=== PATIENT | female | born 1935 | race Caucasian/White ===

== ENCOUNTER 2016-10-11 15:53 | Outpatient (CLI) | payer MEDICARE ==
[2015-12-22 02:25] VITALS: BP 124/72
[2016-10-11 16:22] LABS: BASOPHILS % 0.4 (0.0-1.5); EOSINOPHILS % 3.4 % (0.0-6.8); MEAN CORPUSCULAR HEMOGLOBIN 28.9 pg (28.0-34.0); MONOCYTES # 0.2 # k/uL (0.0-0.9); NEUTROPHILS # 3.1 # k/uL (1.4-7.7)
[2016-10-11 21:51] LABS: IRON SERUM 32 ug/dL (37-145)
== END 2016-10-11 15:54 ==
LOC: LAB 15:53
PROVIDERS: ATTEND Family Medicine
DX: D64.9 Anemia, unspecified (principal); E56.8 Deficiency of other vitamins
CPT/HCPCS: 36415; 82746; 83540; 85025

== ENCOUNTER 2016-12-01 06:28 | Outpatient (CLI) | payer MEDICARE ==
[2015-12-22 02:25] VITALS: BP 124/72
[2016-12-01 07:17] LABS: BASOPHILS % 0.4 (0.0-1.5); LYMPHOCYTES # 1.1 # k/uL (0.6-4.0); MEAN CORPUSCULAR HEMOGLOBIN 29.1 pg (28.0-34.0); MONOCYTES # 0.2 # k/uL (0.0-0.9); MONOCYTES % 3.9 % (0.0-11.0); NEUTROPHILS # 3.6 # k/uL (1.4-7.7)
[2016-12-01 09:31] LABS: eGFR (African) > 60; eGFR (Non-African) > 60
== END 2016-12-01 06:29 ==
LOC: LAB 06:28
PROVIDERS: ATTEND Family Medicine
DX: I10 Essential (primary) hypertension (principal); M60.9 Myositis, unspecified
CPT/HCPCS: 36415; 80053; 85025; 85651

== ENCOUNTER 2017-01-28 14:17 | Outpatient (CLI) | payer MEDICARE ==
[2015-12-22 02:25] VITALS: BP 124/72
[2017-01-28 15:04] LABS: eGFR (African) > 60; eGFR (Non-African) > 60
[2017-01-28 15:17] LABS: BASOPHILS % 0.4 (0.0-1.5); MEAN CORPUSCULAR HEMOGLOBIN 26.6 pg (28.0-34.0); MEAN CORPUSCULAR VOLUME 87.9 fl (80.0-100.0); MONOCYTES % 6.2 % (0.0-11.0); NEUTROPHILS # 3.2 # k/uL (1.4-7.7)
== END 2017-01-28 14:18 ==
LOC: LAB 14:17
PROVIDERS: ATTEND Family Medicine
DX: R07.9 Chest pain, unspecified (principal)
CPT/HCPCS: 80053; 84484; 85025

== ENCOUNTER 2017-02-03 08:23 | Outpatient (CLI) | payer MEDICARE ==
[2015-12-22 02:25] VITALS: BP 124/72
== END 2017-02-03 08:24 ==
LOC: LAB 08:23
PROVIDERS: ATTEND Family Medicine
DX: D50.9 Iron deficiency anemia, unspecified (principal)
CPT/HCPCS: 36415; 83540

== ENCOUNTER 2017-02-07 12:40 | Outpatient (CLI) | payer MEDICARE ==
[2015-12-22 02:25] VITALS: BP 124/72
[2017-02-07] MEDS ORDERED: SALINE FLUSH 10 ML DISP.SYRIN IVF ONE (13:00)
[2017-02-07] MEDS ORDERED: IRON SUCROSE COMPLEX 200 MG in 0.9 % SODIUM CHLORIDE 50 ML IV SCH (13:00)
[2017-02-07] MEDS ORDERED: 0.9 % SODIUM CHLORIDE 50 ML IV.SOLN IV ONE (13:00)
[2017-02-07] MEDS ORDERED: IRON SUCROSE COMPLEX 20 MG/ML 10ML VIAL IV ONE (13:00)
== END 2017-02-07 12:42 ==
LOC: INF 12:40
PROVIDERS: ATTEND Family Medicine
DX: D50.9 Iron deficiency anemia, unspecified (principal)
CPT/HCPCS: 96365; J1756; S1016

== ENCOUNTER 2017-02-10 10:23 | Outpatient (CLI) | payer MEDICARE ==
[2015-12-22 02:25] VITALS: BP 124/72
[2017-02-10] MEDS ORDERED: 0.9 % SODIUM CHLORIDE 100 ML IV.SOLN IV ONE (10:30)
[2017-02-10] MEDS ORDERED: IRON SUCROSE COMPLEX 20 MG/ML 10ML VIAL IV ONE (10:30)
[2017-02-10] MEDS ORDERED: SALINE FLUSH 10 ML DISP.SYRIN IVF ONE (10:30)
== END 2017-02-10 10:24 ==
LOC: INF 10:23
PROVIDERS: ATTEND Family Medicine
DX: D50.9 Iron deficiency anemia, unspecified (principal)
CPT/HCPCS: 96365; J1756; S1016

== ENCOUNTER 2017-02-11 14:30 | Outpatient (CLI) | payer MEDICARE ==
[2015-12-22 02:25] VITALS: BP 124/72
[~2017-02-11 14:30] MED LIST: 0.9 % SODIUM CHLORIDE 50 ML IV.SOLN IV ONE; IRON SUCROSE COMPLEX 20 MG/ML 10ML VIAL IV ONE; SALINE FLUSH 10 ML DISP.SYRIN IVF ONE
== END 2017-02-11 14:32 ==
LOC: INF 14:30
PROVIDERS: ATTEND Family Medicine
DX: D50.9 Iron deficiency anemia, unspecified (principal)
CPT/HCPCS: 96365; J1756; S1016

== ENCOUNTER 2017-02-17 09:28 | Outpatient (CLI) | payer MEDICARE ==
[2015-12-22 02:25] VITALS: BP 124/72
[2017-02-17] MEDS ORDERED: IRON SUCROSE COMPLEX 200 MG in 0.9 % SODIUM CHLORIDE 50 ML IV SCH (10:00)
== END 2017-02-17 09:30 ==
LOC: INF 09:28
PROVIDERS: ATTEND Family Medicine
DX: D50.9 Iron deficiency anemia, unspecified (principal)
CPT/HCPCS: 96365; J1756; S1016

== ENCOUNTER 2017-03-03 13:05 | Outpatient (CLI) | payer MEDICARE ==
[2015-12-22 02:25] VITALS: BP 124/72
== END 2017-03-03 13:06 ==
LOC: POD 13:05
PROVIDERS: ATTEND Podiatrist
DX: B35.1 Tinea unguium (principal); M79.674 Pain in right toe(s); M79.675 Pain in left toe(s)
CPT/HCPCS: 11721; G0463

== ENCOUNTER 2017-03-29 12:15 | Outpatient (CLI) | payer MEDICARE ==
[2015-12-22 02:25] VITALS: BP 124/72
[2017-03-29] MEDS ORDERED: 0.9 % SODIUM CHLORIDE 50 ML IV.SOLN IV ONE (12:30)
[2017-03-29] MEDS ORDERED: IRON SUCROSE COMPLEX 20 MG/ML 10ML VIAL IV ONE (12:30)
[2017-03-29] MEDS ORDERED: SALINE FLUSH 10 ML DISP.SYRIN IVF ONE (12:30)
== END 2017-03-29 12:30 ==
LOC: INF 12:15
PROVIDERS: ATTEND Family Medicine
DX: D50.9 Iron deficiency anemia, unspecified (principal)
CPT/HCPCS: 96365; J1756; S1016

== ENCOUNTER 2017-03-30 09:25 | Outpatient (CLI) | payer MEDICARE ==
[2015-12-22 02:25] VITALS: BP 124/72
== END 2017-03-30 10:00 ==
LOC: OUT 09:25
PROVIDERS: ATTEND Colon & Rectal Surgery
DX: Z76.89 Persons encountering health services in other specified circumstances (principal)
CPT/HCPCS: G0463

== ENCOUNTER 2017-04-25 11:54 | Outpatient (CLI) | payer MEDICARE ==
[2015-12-22 02:25] VITALS: BP 124/72
[2017-04-25 13:09] LABS: BASOPHILS % 0.9 (0.0-1.5); EOSINOPHILS % 2.4 % (0.0-6.8); MEAN CORPUSCULAR HEMOGLOBIN 29.7 pg (28.0-34.0); NEUTROPHILS # 3.5 # k/uL (1.4-7.7)
== END 2017-04-25 11:55 ==
LOC: LAB 11:54
PROVIDERS: ATTEND Family Medicine
DX: D50.9 Iron deficiency anemia, unspecified (principal)
CPT/HCPCS: 36415; 83540; 85025

== ENCOUNTER 2017-04-26 08:48 | Outpatient (CLI) | payer MEDICARE ==
[2015-12-22 02:25] VITALS: BP 124/72
[2017-04-26] MEDS ORDERED: 0.9 % SODIUM CHLORIDE 50 ML IV.SOLN IV ONE (09:00)
[2017-04-26] MEDS ORDERED: SALINE FLUSH 10 ML DISP.SYRIN IVF ONE (09:00)
[2017-04-26] MEDS ORDERED: IRON SUCROSE COMPLEX 20 MG/ML 10ML VIAL IV ONE (09:00)
== END 2017-04-26 08:50 ==
LOC: INF 08:48
PROVIDERS: ATTEND Family Medicine
DX: D50.9 Iron deficiency anemia, unspecified (principal)
CPT/HCPCS: 96365; J1756; S1016

== ENCOUNTER 2017-05-25 10:10 | Outpatient (CLI) | payer MEDICARE ==
[2015-12-22 02:25] VITALS: BP 124/72
[2017-05-25] MEDS ORDERED: SALINE FLUSH 10 ML DISP.SYRIN IVF ONE ×2 (10:25→10:30)
[2017-05-25] MEDS ORDERED: IRON SUCROSE COMPLEX 20 MG/ML 10ML VIAL IV ONE (10:30)
[2017-05-25] MEDS ORDERED: 0.9 % SODIUM CHLORIDE 50 ML IV.SOLN IV ONE (10:30)
== END 2017-05-25 10:11 ==
LOC: INF 10:10
PROVIDERS: ATTEND Family Medicine
DX: D50.9 Iron deficiency anemia, unspecified (principal)
CPT/HCPCS: 96365; J1756; S1016

== ENCOUNTER 2017-06-13 11:25 | Outpatient (CLI) | payer MEDICARE ==
[2015-12-22 02:25] VITALS: BP 124/72
[2017-06-13 14:57] LABS: BASOPHILS % 0.9 (0.0-1.5); EOSINOPHILS % 2.8 % (0.0-6.8); MEAN CORPUSCULAR HEMOGLOBIN 31.7 pg (28.0-34.0); MEAN CORPUSCULAR VOLUME 93.7 fl (80.0-100.0); MONOCYTES % 5.4 % (0.0-11.0); NEUTROPHILS # 3.8 # k/uL (1.4-7.7)
== END 2017-06-13 11:26 ==
LOC: LAB 11:25
PROVIDERS: ATTEND Family Medicine
DX: D64.9 Anemia, unspecified (principal)
CPT/HCPCS: 36415; 85025

== ENCOUNTER 2017-06-21 09:08 | Outpatient (CLI) | payer MEDICARE ==
[2015-12-22 02:25] VITALS: BP 124/72
[~2017-06-21 09:08] MED LIST changes: +IRON SUCROSE COMPLEX 200 MG in 0.9 % SODIUM CHLORIDE 50 ML IV SCH
[2017-06-21] MEDS ORDERED: SALINE FLUSH 10 ML DISP.SYRIN IVF ONE (09:21)
== END 2017-06-21 09:10 ==
LOC: INF 09:08
PROVIDERS: ATTEND Family Medicine
DX: D50.9 Iron deficiency anemia, unspecified (principal)
CPT/HCPCS: 96365; J1756; S1016

== ENCOUNTER 2017-06-22 10:10 | Outpatient (CLI) | payer MEDICARE ==
[2015-12-22 02:25] VITALS: BP 124/72
== END 2017-06-22 10:11 ==
LOC: OUT 10:10
PROVIDERS: ATTEND Colon & Rectal Surgery
DX: D50.0 Iron deficiency anemia secondary to blood loss (chronic) (principal)
CPT/HCPCS: G0463

== ENCOUNTER 2017-07-13 08:37 | Day surgery (SDC) | payer MEDICARE ==
[2015-12-22 02:25] VITALS: BP 124/72
[~2017-07-13 08:37] MED LIST changes: +BUPIVACAINE HCL/PF 2.5 MG/ML 10ML VIAL IV ONE; +HEPARIN SODIUM,PORCINE 30 UNITS INJ IV ONE; -IRON SUCROSE COMPLEX 200 MG in 0.9 % SODIUM CHLORIDE 50 ML IV SCH; +LIDOCAINE HCL/PF 2% 100 MG/5 ML VIAL IJ ONE; +MORPHINE SULFATE 2 MG/ML PREFILLED SYR ONE; +ONDANSETRON HCL/PF 4 MG/ 2ML VIAL ONE; +PROPOFOL 200 MG/20 ML VIAL IV ONE; +SEVOFLURANE 250 ML LIQUID IH ONE; +ceFAZolin SODIUM 1 GM VIAL ONE
--- NOTE | 2017-07-13 12:44 | Operative Note ---
SURGEON: João Peralta MD ANESTHESIA: General. ESTIMATED BLOOD LOSS: Minimal. COMPLICATIONS: None. PREOPERATIVE DIAGNOSIS: Poor IV access. POSTOPERATIVE DIAGNOSIS: Poor IV access. PROCEDURE PERFORMED: Attempted Mediport placement. INDICATIONS FOR PROCEDURE: This is an 82-year-old woman requiring monthly iron infusions who presented for a port placement. DESCRIPTION OF PROCEDURE: Patient was brought to the operating room and general anesthesia was achieved. The neck and chest were prepped and draped. Using ultrasound guidance, the right internal jugular vein was accessed percutaneously in the neck. The wire was seen in the vein, however, it would not pass beyond the junction with the subclavian. Despite multiple manipulations, the wire continued to pass toward the subclavian vein to the right. Thus, it was decided to try on the left. Once again, the vein was accessed with ultrasound and the ultrasound was able to visualize the wire in the vein. It passed to the same position at the right subclavian and IVC junction but this once again could not be passed by this area despite trying to manipulate it extensively using fluoroscopy. Thus, it is thought there is an obstruction at the top of the IVC and the procedure was aborted. We will recommend that she have interventional radiology attempt placement. APPARENT FINDINGS: Consistent obstruction at the proximal inferior vena cava precluding passage of the wire from either side of the neck. cc: Dr. Cheikh MAC
[2017-07-13] MEDS ORDERED: ONDANSETRON HCL/PF 4 MG/ 2ML VIAL ONE (12:49)
[2017-07-13 14:41] LABS: BASOPHILS % 1.2 (0.0-1.5); EOSINOPHILS % 3.1 % (0.0-6.8); MEAN CORPUSCULAR VOLUME 97.7 fl (80.0-100.0); NEUTROPHILS # 3.2 # k/uL (1.4-7.7)
[2017-08-12] MEDS ORDERED: IRON SUCROSE COMPLEX 200 MG in 0.9 % SODIUM CHLORIDE 50 ML IV SCH (09:00)
== END 2017-07-13 08:40 ==
LOC: OPSURG 08:37
PROVIDERS: ATTEND Colon & Rectal Surgery
DX: Z45.2 Encounter for adjustment and management of vascular access device (principal)
CPT/HCPCS: 76942; 85025; J0690; J1756; J2001; J2270; J2405; J2704; J3490; J7030; 36556; S1016

== ENCOUNTER 2017-07-25 11:00 | Outpatient (CLI) | payer MEDICARE ==
[2015-12-22 02:25] VITALS: BP 124/72
[2017-07-25 14:12] LABS: BASOPHILS % 0.6 (0.0-1.5); EOSINOPHILS % 4.5 % (0.0-6.8); MEAN CORPUSCULAR HEMOGLOBIN 31.5 pg (28.0-34.0); MEAN CORPUSCULAR VOLUME 97.5 fl (80.0-100.0); MONOCYTES % 5.5 % (0.0-11.0); NEUTROPHILS # 3.2 # k/uL (1.4-7.7)
== END 2017-07-25 11:02 ==
LOC: LAB 11:00
PROVIDERS: ATTEND Family Medicine
DX: D64.9 Anemia, unspecified (principal)
CPT/HCPCS: 36415; 85025

== ENCOUNTER 2017-08-04 10:04 | Outpatient (CLI) | payer MEDICARE ==
[2015-12-22 02:25] VITALS: BP 124/72
--- NOTE | 2017-08-04 15:32 | Diagnostic Imaging Report ---
KEVAN MOSES [facility] [address] [facility] [address] [id number] Report Submission Date: Aug 04, 2017 2:49:51 PM CDT Patient Study Name: VILMA CHANDRA Date: Aug 04, 2017 2:25:03 PM CDT Modality Type: CR Gender: F Description: SPINE : 33 Institution: [facility] Physician: KEVAN MOSES Examination: Plain film thoracic spine History: Back discomfort Findings: 3 views of the thoracic spine demonstrates osteopenia. Kyphoplasty involving an upper thoracic vertebral bodies. Mild to moderate anterior narrowing involving the mid to lower thoracic and upper lumbar vertebral bodies. Atherosclerotic plaque involving the thoracic/abdominal aorta. Right janice cath. Impression: Multiple compression deformities involving the mid to lower thoracic /upper lumbar vertebral bodies: Chronicity indeterminate without older examinations. Electronically signed on Aug 04, 2017 2:49:51 PM CDT by: Krish MAC
== END 2017-08-04 10:14 ==
LOC: RAD 10:04
PROVIDERS: ATTEND Family Medicine
DX: M54.6 Pain in thoracic spine (principal)
CPT/HCPCS: 72072

== ENCOUNTER 2017-08-11 08:24 | Outpatient (CLI) | payer MEDICARE ==
[2015-12-22 02:25] VITALS: BP 124/72
== END 2017-08-11 08:25 ==
LOC: OUT 08:24
PROVIDERS: ATTEND Family Medicine
DX: Z23 Encounter for immunization (principal)
CPT/HCPCS: 90685; G0008

== ENCOUNTER 2017-08-28 08:40 | Outpatient (CLI) | payer MEDICARE ==
[2015-12-22 02:25] VITALS: BP 124/72
[~2017-08-28 08:40] MED LIST changes: -0.9 % SODIUM CHLORIDE 50 ML IV.SOLN IV ONE; -BUPIVACAINE HCL/PF 2.5 MG/ML 10ML VIAL IV ONE; -HEPARIN SODIUM,PORCINE 30 UNITS INJ IV ONE; -IRON SUCROSE COMPLEX 20 MG/ML 10ML VIAL IV ONE; -LIDOCAINE HCL/PF 2% 100 MG/5 ML VIAL IJ ONE; -MORPHINE SULFATE 2 MG/ML PREFILLED SYR ONE; -ONDANSETRON HCL/PF 4 MG/ 2ML VIAL ONE; -PROPOFOL 200 MG/20 ML VIAL IV ONE; -SEVOFLURANE 250 ML LIQUID IH ONE; -ceFAZolin SODIUM 1 GM VIAL ONE
[2017-08-28] MEDS ORDERED: 0.9 % SODIUM CHLORIDE 100 ML IV.SOLN IV ONE (09:00)
[2017-08-28] MEDS ORDERED: IRON SUCROSE COMPLEX 200 MG in 0.9 % SODIUM CHLORIDE 100 ML IV SCH (09:00)
[2017-08-28] MEDS ORDERED: HEPARIN SODIUM 500 UNIT/5 ML DISP.SYRIN IV ONE (09:00)
[2017-08-28] MEDS ORDERED: IRON SUCROSE COMPLEX 20 MG/ML 10ML VIAL IV ONE (09:00)
[2017-08-28] MEDS ORDERED: SALINE FLUSH 10 ML DISP.SYRIN IVF ONE (09:00)
[2017-08-28 09:10] LABS: BASOPHILS % 0.5 (0.0-1.5); EOSINOPHILS % 5.2 % (0.0-6.8); MEAN CORPUSCULAR VOLUME 99.1 fl (80.0-100.0); MONOCYTES % 4.6 % (0.0-11.0)
== END 2017-08-28 08:42 ==
LOC: INF 08:40
PROVIDERS: ATTEND Family Medicine
DX: D50.9 Iron deficiency anemia, unspecified (principal)
CPT/HCPCS: 85025; J1642; J1756; 96374

== ENCOUNTER 2017-08-29 07:50 | Outpatient (CLI) | payer MEDICARE ==
[2015-12-22 02:25] VITALS: BP 124/72
[2017-08-29] MEDS ORDERED: TRIAMCINOLONE ACETONID 40MG/ML VIAL ONE (08:00)
[2017-08-29] MEDS ORDERED: BUPIVACAINE HCL/EPINEPHRINE/PF 0.25% VIAL IM ONE (08:00)
[2017-08-29] MEDS ORDERED: PROPOFOL 200 MG/20 ML VIAL IV ONE (08:00)
[2017-08-29] MEDS ORDERED: KETAMINE HCL 200 MG/20 ML VIAL ONE (08:00)
[2017-08-29] MEDS ORDERED: Lidocaine 1% 5ml(IM or SUTURE)(PAIN CLINIC) ONE (08:00)
[2017-08-29] MEDS ORDERED: ONDANSETRON HCL/PF 4 MG/ 2ML VIAL ONE (08:00)
[2017-08-29] MEDS ORDERED: NORMAL SALINE 500 ML IV.SOLN IV ONE (08:00)
[2017-08-29] MEDS ORDERED: SALINE FLUSH 10 ML DISP.SYRIN IVF ONE (08:00)
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
== END 2017-08-29 07:52 ==
LOC: OUT 07:50
PROVIDERS: ATTEND Anesthesiology Pain Medicine
DX: M40.294 Other kyphosis, thoracic region (principal); M47.814 Spondylosis without myelopathy or radiculopathy, thoracic region
CPT/HCPCS: 64490; 64491; 64492; 99214; G0463; J2405; J2704; J3301; J7060

== ENCOUNTER → 2017-09-12 10:15 | Inpatient (IN) | payer SELFPAY ==
[2015-03-23 20:19] VITALS: BP 129/74
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
--- NOTE | 2015-08-03 10:03 | Inpatient Progress Note ---
Subjective - Required Recertification Statement I anticipate X number of days because-include discharge plan: 10 - Review of Systems Events since last encounter: Anisha has continued to be nauseated despite taking her reglan and her Zofran. She is currently declining referral to [facility] (which she had requested on admission). She denies any further pain and has not had any emesis. General: Denies: Chills HEENT: Denies: Head Aches Pulmonary: Denies: Dyspnea, Cough Cardiovascular: Denies: Chest Pain, Palpitations Gastrointestinal: Nausea. Denies: Vomiting Genitourinary: Denies: Dysuria Neurological: Weakness. Denies: Change in Speech, Confusion Objective - Exam Vitals and I&O: Vital Signs Temp Pulse Resp BP 129/74 05/06/15 09:41 Pulse Ox General: Alert, Oriented to Person, Oriented to Place, Mild distress (due to nausea) HEENT: Atraumatic, PERRLA, EOMI Neck: Supple, No JVD, No thyromegaly Lungs: Clear to auscultation, Normal air movement, Speaks full Sentences. No: Respiratory Distress, Wheezes, Rales Cardiovascular: Regular rate, Normal S1, Normal S2 Abdomen: Normal bowel sounds, Soft, Other (minimal tenderness in the epigastrium ) Extremities: No clubbing, No cyanosis, No edema Assessment/Plan - Assessment/Plan (1) Nausea Status: Acute Current Visit: Yes Assessment: Continued despite reglan and Zofran Plan: Add Phenergan 25-50 mg IM q6h prn nausea.
--- NOTE | 2015-08-14 11:46 | Inpatient Progress Note ---
Subjective - Required Recertification Statement I anticipate X number of days because-include discharge plan: 5 - Review of Systems Events since last encounter: Anisha has become more weak, and has not been able to keep much down. She had some emesis this morning. It was not bloody. She hasn't noted any blood per rectum. She denies any chest pain. General: Denies: Chills, Night Sweats HEENT: Denies: Head Aches Pulmonary: Denies: Dyspnea, Cough Cardiovascular: Denies: Chest Pain Gastrointestinal: Nausea, Vomiting. Denies: Abdominal Pain, Diarrhea, Constipation, Melena Genitourinary: Denies: Dysuria, Frequency Musculoskeletal: Denies: Neck Pain, Shoulder Pain Neurological: Weakness Objective - Exam Vitals and I&O: Vital Signs Temp Pulse Resp BP 129/74 05/06/15 09:41 Pulse Ox General: Alert, Oriented to Person, Oriented to Place, Oriented to Time, Cooperative, Mild distress (due to nausea) HEENT: Atraumatic, PERRLA, EOMI, Other (Mild pallor of bulbar conjunctiva is noted) Neck: Supple, No JVD, No thyromegaly Lungs: Clear to auscultation, Normal air movement, Speaks full Sentences Cardiovascular: Regular rate, Normal S1, Normal S2 Abdomen: Normal bowel sounds, Soft, No tenderness, No hepatospenomegaly, No masses Extremities: No clubbing, No cyanosis Skin: Normal, [place] Neurological: Normal speech Assessment/Plan - Assessment/Plan (1) Nausea Status: Acute Current Visit: Yes Assessment: Continue ondansetron NS at 125cc/hour CBC/CMP ordered
--- NOTE | 2015-09-11 17:34 | Inpatient Progress Note ---
Subjective - Required Recertification Statement I anticipate X number of days because-include discharge plan: 1 - Review of Systems Events since last encounter: Came to see patient due to anemia. She has been feeling very weak. I checked her CBC and her HgB was 7.0. General: Denies: Chills HEENT: Denies: Head Aches Pulmonary: Dyspnea. Denies: Cough Cardiovascular: Denies: Chest Pain Gastrointestinal: Nausea. Denies: Vomiting Genitourinary: Denies: Dysuria Musculoskeletal: Denies: Neck Pain Neurological: Weakness Objective - Exam Vitals and I&O: Vital Signs Temp Pulse Resp BP 129/74 05/06/15 09:41 Pulse Ox General: Alert, Oriented to Person, Oriented to Place, Oriented to Time, Other ( Pale) HEENT: Atraumatic, PERRLA, EOMI Neck: Supple, No JVD Lungs: Clear to auscultation, Normal air movement, Speaks full Sentences. No: Respiratory Distress, Wheezes Cardiovascular: Regular rate Abdomen: Normal bowel sounds Extremities: No clubbing, No cyanosis Skin: Pale Neurological: Normal speech Psych/Mental Status: Mental status NL Assessment/Plan - Assessment/Plan (1) Nausea Status: Acute Current Visit: No (2) Anemia due to blood loss Status: Acute Current Visit: Yes Assessment: Transfuse 2 units of packed red blood cells
[~2017-09-12 10:15] MED LIST changes: +0.9 % SODIUM CHLORIDE 1,000 ML IV ONE; +0.9 % SODIUM CHLORIDE 500 ML IV ONE; +FERROUS SULFATE 325 MG TABLET PO ONE; +IRON SUCROSE COMPLEX 200 MG in 0.9 % SODIUM CHLORIDE 50 ML IV ONE; +LISINOPRIL 5 MG TABLET ONE; +METOPROLOL TARTRATE 50 MG TABLET ONE; +VENLAFAXINE HCL 37.5 MG CAP.ER.24H PO ONE
== END | DRG 392 ==
LOC: UNDOADMIN 07-30 11:00 → SOUTH 07-30 11:00 → ICF 07-30 12:22 → UNDOADMIN 07-30 12:22 → SOUTH 09-08 09:00 → UNDOADMIN 09-08 09:00 → ICF 09-08 09:00
PROVIDERS: ADMIT Family Medicine; ATTEND Family Medicine
DX: R11.2 Nausea with vomiting, unspecified (principal); E03.9 Hypothyroidism, unspecified; I10 Essential (primary) hypertension; D64.9 Anemia, unspecified; F32.9 Major depressive disorder, single episode, unspecified; E61.1 Iron deficiency; G89.29 Other chronic pain; M54.6 Pain in thoracic spine
CPT/HCPCS: J7060; J7030; S1016

== ENCOUNTER 2017-09-26 08:06 | Outpatient (CLI) | payer MEDICARE ==
[2015-12-22 02:25] VITALS: BP 124/72
[~2017-09-26 08:06] MED LIST changes: -0.9 % SODIUM CHLORIDE 1,000 ML IV ONE; -0.9 % SODIUM CHLORIDE 500 ML IV ONE; +BUPIVACAINE HCL/PF 2.5 MG/ML 10ML VIAL IV ONE; -FERROUS SULFATE 325 MG TABLET PO ONE; +HEPARIN SODIUM 500 UNIT/5 ML DISP.SYRIN IV ONE; -IRON SUCROSE COMPLEX 200 MG in 0.9 % SODIUM CHLORIDE 50 ML IV ONE; +KETAMINE HCL 200 MG/20 ML VIAL ONE; +LIDOCAINE 1%/EPINEPHRINE 20ML VIAL IJ ONE; -LISINOPRIL 5 MG TABLET ONE; -METOPROLOL TARTRATE 50 MG TABLET ONE; +NORMAL SALINE 500 ML IV.SOLN IV ONE; +PROPOFOL 200 MG/20 ML VIAL IV ONE; +TRIAMCINOLONE ACETONID 40MG/ML VIAL ONE; -VENLAFAXINE HCL 37.5 MG CAP.ER.24H PO ONE
--- NOTE | 2017-09-26 11:27 | THORACIC FACET MBB ---
SUBJECTIVE: I had the opportunity of following up with Anisha Banks. This is a patient who had T7, T8, T9, and T10 facet medial branch blocks and presents today for possible radiofrequency neurolysis. The pain in her lower portion of her thoracic spine has completely resolved. She is telling me that she now has pain in the upper mid-axial thoracic spine at the area of the kyphosis. She has a previous vertebroplasty at T4. Plan today for facet medial branch blocks at T2, T3, T4, and T5 bilaterally. I requested anesthesia because of intolerance to injection and lying prone on the procedure table. ANESTHESIA: Monitored anesthesia care by Dav Russell CRNA. PROCEDURE: Bilateral facet medial branch blocks at T2, T3, T4, and T5. DESCRIPTION OF PROCEDURE: Consent was obtained after risks were fully explained including bleeding, infection, nerve damage, worsening of symptoms, and no improvement. The patient was positioned prone on the fluoroscopic procedure table and sterile prep and drape was applied. Under monitored anesthesia care and x-ray guidance, the left T2 pedicle at the transition of the T2 transverse process was identified and a small number 23-gauge needle was placed obliquely to the junction of the pedicle and the transverse process. At this point, there was negative aspiration of blood or CSF and following this, 1% lidocaine mixed with 0.25% bupivacaine and 1:400,000 epinephrine was placed over the facet medial branch at the left T2 facet. In this exact same fashion, the right T2, bilateral T3, bilateral T4, and bilateral T5 facet medial branch blocks were performed for a total of 8 medial branch blocks. The patient tolerated the procedure well. There were no apparent complications. She was discharged home in good condition. ASSESSMENT: Thoracic spondylosis/facet arthropathy. PLAN: Bilateral facet medial branch blocks at T2, T3, T4, and T5. FOLLOW UP: Return to clinic if problems develop or worsen. cc: Dr. Cheikh MAC
== END 2017-09-26 08:07 ==
LOC: OUT 08:06
PROVIDERS: ATTEND Anesthesiology Pain Medicine
DX: M47.814 Spondylosis without myelopathy or radiculopathy, thoracic region (principal)
CPT/HCPCS: J1642; J2704; J3301; J3490; J7060; 64490; 64491; 64492; 99213; G0463

== ENCOUNTER 2017-09-27 09:49 | Outpatient (CLI) | payer MEDICARE ==
[2015-12-22 02:25] VITALS: BP 124/72
[2017-09-27] MEDS ORDERED: SALINE FLUSH 10 ML DISP.SYRIN IVF ONE (10:00)
[2017-09-27] MEDS ORDERED: HEPARIN SODIUM 500 UNIT/5 ML DISP.SYRIN IV ONE (10:00)
[2017-09-27] MEDS ORDERED: IRON SUCROSE COMPLEX 20 MG/ML 10ML VIAL IV ONE (10:00)
[2017-09-27] MEDS ORDERED: 0.9 % SODIUM CHLORIDE 50 ML IV.SOLN IV ONE (10:00)
== END 2017-09-27 09:50 ==
LOC: INF 09:49
PROVIDERS: ATTEND Family Medicine
DX: D50.9 Iron deficiency anemia, unspecified (principal)
CPT/HCPCS: 96374; J1642; J1756

== ENCOUNTER 2017-10-30 12:47 | Outpatient (CLI) | payer MEDICARE ==
[2015-12-22 02:25] VITALS: BP 124/72
[2017-10-30] MEDS ORDERED: SALINE FLUSH 10 ML DISP.SYRIN IVF ONE (13:00)
[2017-10-30] MEDS ORDERED: 0.9 % SODIUM CHLORIDE 100 ML IV.SOLN IV ONE (13:00)
[2017-10-30] MEDS ORDERED: HEPARIN SODIUM 500 UNIT/5 ML DISP.SYRIN IV ONE (13:00)
[2017-10-30] MEDS ORDERED: IRON SUCROSE COMPLEX 20 MG/ML 10ML VIAL IV ONE (13:00)
[2017-10-30] MEDS ORDERED: IRON SUCROSE COMPLEX 200 MG in 0.9 % SODIUM CHLORIDE 100 ML IV SCH (14:00)
== END 2017-10-30 12:50 ==
LOC: INF 12:47
PROVIDERS: ATTEND Family Medicine
DX: D50.9 Iron deficiency anemia, unspecified (principal)
CPT/HCPCS: J1642; J1756; 96374

== ENCOUNTER 2017-10-31 08:22 | Outpatient (CLI) | payer MEDICARE ==
[2015-12-22 02:25] VITALS: BP 124/72
[~2017-10-31 08:22] MED LIST changes: +0.9 % SODIUM CHLORIDE PF 10 ML VIAL IJ ONE; -BUPIVACAINE HCL/PF 2.5 MG/ML 10ML VIAL IV ONE; -KETAMINE HCL 200 MG/20 ML VIAL ONE; -LIDOCAINE 1%/EPINEPHRINE 20ML VIAL IJ ONE; +Lidocaine 1% 5ml(IM or SUTURE)(PAIN CLINIC) ONE; -NORMAL SALINE 500 ML IV.SOLN IV ONE; -PROPOFOL 200 MG/20 ML VIAL IV ONE; -SALINE FLUSH 10 ML DISP.SYRIN IVF ONE
--- NOTE | 2017-11-01 11:15 | LESI WITH FLUORO ---
SUBJECTIVE: Ms. Banks presents today in follow up. This is an 82-year-old white female with spondylothoracic pain. I treated her twice with upper and lower thoracic facet medial branch blocks and her thoracic pain she tells me has resolved. Her chief complaint today is no longer between the shoulder blades or in the thoracic spine but symptoms consistent with neurogenic claudication and spinal stenosis. She has an MRI from 2012 which reveals moderate spinal and severe subarticular L4-L5 stenosis which would be consistent with her complaints of bilateral leg pain when she stands and walks associated with weakness which resolves with sitting or lying down. At this point, I think it is reasonable to obtain a new MRI study as her last study is more than [address] a palliative L5-S1 epidural steroid injection. I will follow this nice lady up next month. OPERATIVE PROCEDURE: Right L5-S1 epidural steroid injection with fluoroscopic guidance. DESCRIPTION OF PROCEDURE: The risks and benefits were discussed with the patient including the risk of infection, bleeding, nerve injury, and headache, as well as the risks of steroid exposure causing hyperglycemia, hypertension, osteoporosis, or increased infectious risks. The patient understood these risks and agreed to proceed. Consent was obtained prior to the procedure. The patient was placed in the prone position on the fluoroscopy table with a pillow underneath the abdomen to afford anterior flexion of the lumbar spine. The low back was cleaned and a sterile drape was applied. An 23-gauge thin wall Tuohy epidural needle was advanced with normal saline loss of resistance technique and direct fluoroscopic guidance with a right paramedian approach at the L5-S1 level. On obtaining loss of resistance to normal saline, it was verified that there was no aspiration of CSF or blood. Furthermore, the needle tip location was verified with lateral and AP fluoroscopic views. Omnipaque 240 myelogram dye were injected through the epidural needle. The distribution of the dye was noted to be within the desired distribution within the lumbar epidural space. The medication was injected into the epidural space. The stylet was replaced in the needle and the needle was removed from the back. The patient tolerated the procedure well. The back was cleaned and a bandage was applied over the injection site. The patient was monitored for 20 minutes following the procedure. during this time the vital signs remained stable and the patient experienced no adverse sequelae. The patient was discharged in good condition. ASSESSMENT: 1. Lumbar intervertebral disc disorder with myelopathy. 2. Lumbar intervertebral disc derangement/displacement with radicular pain but not myelopathy. FOLLOWUP: Return to clinic if problems develop or worsen. Thank you for allowing me to take part in the care of this nice lady. I appreciate the opportunity to take part in the care of your patients. cc: Dr. Cheikh MAC
== END 2017-10-31 08:24 ==
LOC: OUT 08:22
PROVIDERS: ATTEND Anesthesiology Pain Medicine
DX: M47.814 Spondylosis without myelopathy or radiculopathy, thoracic region (principal)
CPT/HCPCS: J1642; J3301; Q9966; 62323; 99214; G0463

== ENCOUNTER 2017-12-05 09:46 | Outpatient (CLI) | payer MEDICARE ==
[2015-12-22 02:25] VITALS: BP 124/72
[2017-12-05] MEDS ORDERED: IRON SUCROSE COMPLEX 200 MG in 0.9 % SODIUM CHLORIDE 250 ML IV SCH (10:00)
[2017-12-05] MEDS ORDERED: HEPARIN SODIUM 500 UNIT/5 ML DISP.SYRIN IV ONE (10:00)
[2017-12-05] MEDS ORDERED: IRON SUCROSE COMPLEX 20 MG/ML 10ML VIAL IV ONE (10:00)
[2017-12-05] MEDS ORDERED: [UNRECOGNIZED DRUG - OTHER] IV ONE (10:00)
[2017-12-05] MEDS ORDERED: SALINE FLUSH 10 ML DISP.SYRIN IVF ONE (10:00)
== END 2017-12-05 09:47 ==
LOC: INF 09:46
PROVIDERS: ATTEND Family Medicine
DX: D50.9 Iron deficiency anemia, unspecified (principal)
CPT/HCPCS: 96365; J1642; J1756

== ENCOUNTER 2017-12-26 08:41 | Outpatient (CLI) | payer MEDICARE ==
[2015-12-22 02:25] VITALS: BP 124/72
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
== END 2017-12-26 08:42 ==
LOC: OUT 08:41
PROVIDERS: ATTEND Anesthesiology Pain Medicine
DX: M47.814 Spondylosis without myelopathy or radiculopathy, thoracic region (principal); M48.061 Spinal stenosis, lumbar region without neurogenic claudication
CPT/HCPCS: 99213; G0463

== ENCOUNTER 2017-12-27 10:04 | Outpatient (CLI) | payer MEDICARE ==
[2015-12-22 02:25] VITALS: BP 124/72
[2017-12-27] MEDS ORDERED: HEPARIN SODIUM 500 UNIT/5 ML DISP.SYRIN IV ONE (10:06)
[2017-12-27] MEDS ORDERED: IRON SUCROSE COMPLEX 20 MG/ML 10ML VIAL IV ONE (10:06)
[2017-12-27] MEDS ORDERED: SALINE FLUSH 10 ML DISP.SYRIN IVF ONE (10:06)
[2017-12-27] MEDS ORDERED: 0.9 % SODIUM CHLORIDE 250 ML IV.SOLN IV ONE (10:06)
== END 2017-12-27 10:05 ==
LOC: INF 10:04
PROVIDERS: ATTEND Family Medicine
DX: D50.9 Iron deficiency anemia, unspecified (principal)
CPT/HCPCS: 96365; J1756; J7050; J1642

== ENCOUNTER 2018-01-23 09:16 | Outpatient (CLI) | payer MEDICARE ==
[2015-12-22 02:25] VITALS: BP 124/72
--- NOTE | 2018-01-24 11:58 | LESI WITH FLUORO ---
SUBJECTIVE: I had the opportunity of following up with Anisha Banks today. This is a patient I have seen with complaints of thoracic spondylolytic back pain for which she received facet medial branch blocks and a history of spinal stenosis, primarily most severe at L2-L3 and otherwise at L3-L4. She has had good results with facet medial branch blocks and her thoracic pain has resolved; and at this point, I do not see any reason to proceed with a radiofrequency neurolysis. Her chief complaint is now recurrent bilateral lower extremity pain associated with neurogenic claudication symptoms consistent with spinal stenosis and radicular pain and is here for a lumbar epidural steroid injection today. I have told her that we could repeat this a couple of times a year and she is in agreement and we will proceed. OPERATIVE PROCEDURE: Left L4-L5 epidural steroid injection with fluoroscopic guidance. DESCRIPTION OF PROCEDURE: The risks and benefits were discussed with the patient including the risk of infection, bleeding, nerve injury, and headache, as well as the risks of steroid exposure causing hyperglycemia, hypertension, osteoporosis, or increased infectious risks. The patient understood these risks and agreed to proceed. Consent was obtained prior to the procedure. The patient was placed in the prone position on the fluoroscopy table with a pillow underneath the abdomen to afford anterior flexion of the lumbar spine. The low back was cleaned and a sterile drape was applied. An 18-gauge thin wall Tuohy epidural needle was advanced with normal saline loss of resistance technique and direct fluoroscopic guidance with a left paramedian approach at the L4-L5 level. On obtaining loss of resistance to normal saline, it was verified that there was no aspiration of CSF or blood. Furthermore, the needle tip location was verified with lateral and AP fluoroscopic views. Omnipaque 240 myelogram dye were injected through the epidural needle. The distribution of the dye was noted to be within the desired distribution within the lumbar epidural space. The medication was injected into the epidural space. The stylet was replaced in the needle and the needle was removed from the back. The patient tolerated the procedure well. The back was cleaned and a bandage was applied over the injection site. The patient was monitored for 20 minutes following the procedure. during this time the vital signs remained stable and the patient experienced no adverse sequelae. The patient was discharged in good condition. ASSESSMENT: 1. L2-L3 severe spinal stenosis. 2. Thoracic spondylolysis of the thoracic spine, status post thoracic facet medial branch blocks with symptoms now resolved. PLAN: Left L4-L5 epidural steroid injection under fluoroscopic guidance today. FOLLOWUP: Return to clinic if problems develop or worsen. cc: Dr. Cheikh MAC
== END 2018-01-23 09:17 ==
LOC: OUT 09:16
PROVIDERS: ATTEND Anesthesiology Pain Medicine
DX: M48.062 Spinal stenosis, lumbar region with neurogenic claudication (principal)
CPT/HCPCS: J3301; Q9966; 62323; 99213; G0463

== ENCOUNTER 2018-01-24 09:40 | Outpatient (CLI) | payer MEDICARE ==
[2015-12-22 02:25] VITALS: BP 124/72
[2018-01-24] MEDS ORDERED: HEPARIN SODIUM 500 UNIT/5 ML DISP.SYRIN IV ONE (10:00)
[2018-01-24] MEDS ORDERED: IRON SUCROSE COMPLEX 20 MG/ML 10ML VIAL IV ONE (10:00)
[2018-01-24] MEDS ORDERED: 0.9 % SODIUM CHLORIDE 250 ML IV.SOLN IV ONE (10:00)
[2018-01-24] MEDS ORDERED: SALINE FLUSH 10 ML DISP.SYRIN IVF ONE (10:00)
== END 2018-01-24 09:42 ==
LOC: INF 09:40
PROVIDERS: ATTEND Family Medicine
DX: D50.9 Iron deficiency anemia, unspecified (principal)
CPT/HCPCS: J1642; J1756; J7050; 96365

== ENCOUNTER 2018-02-28 11:06 | Outpatient (CLI) | payer MEDICARE ==
[2015-12-22 02:25] VITALS: BP 124/72
[~2018-02-28 11:06] MED LIST changes: +0.9 % SODIUM CHLORIDE 250 ML IV.SOLN IV ONE; -0.9 % SODIUM CHLORIDE PF 10 ML VIAL IJ ONE; -HEPARIN SODIUM 500 UNIT/5 ML DISP.SYRIN IV ONE; +HEPARIN SODIUM 5000 UNIT/1 ML ONE; +IRON SUCROSE COMPLEX 20 MG/ML 10ML VIAL IV ONE; -Lidocaine 1% 5ml(IM or SUTURE)(PAIN CLINIC) ONE; +SALINE FLUSH 10 ML DISP.SYRIN IVF ONE; -TRIAMCINOLONE ACETONID 40MG/ML VIAL ONE
== END 2018-02-28 13:17 ==
LOC: INF 11:06
PROVIDERS: ATTEND Family Medicine
DX: D50.9 Iron deficiency anemia, unspecified (principal)
CPT/HCPCS: J1644; J1756; J7050; 96365

== ENCOUNTER 2018-04-02 08:53 | Outpatient (CLI) | payer MEDICARE ==
[2015-12-22 02:25] VITALS: BP 124/72
[2018-04-02] MEDS ORDERED: 0.9 % SODIUM CHLORIDE 250 ML IV.SOLN IV ONE (09:00)
[2018-04-02] MEDS ORDERED: IRON SUCROSE COMPLEX 20 MG/ML 10ML VIAL IV ONE (09:00)
[2018-04-02] MEDS ORDERED: SALINE FLUSH 10 ML DISP.SYRIN IVF ONE (09:00)
[2018-04-02] MEDS ORDERED: HEPARIN SODIUM 500 UNIT/5 ML DISP.SYRIN IV ONE (09:00)
[2018-04-02] MEDS ORDERED: IRON SUCROSE COMPLEX 200 MG in 0.9 % SODIUM CHLORIDE 250 ML IV SCH (10:00)
== END 2018-04-02 08:55 ==
LOC: INF 08:53
PROVIDERS: ATTEND Family Medicine
DX: D50.9 Iron deficiency anemia, unspecified (principal)
CPT/HCPCS: J1642; J1756; J7050; 96365

== ENCOUNTER 2018-05-01 09:01 | Outpatient (CLI) | payer MEDICARE ==
[2015-12-22 02:25] VITALS: BP 124/72
[~2018-05-01 09:01] MED LIST changes: +HEPARIN SODIUM 500 UNIT/5 ML DISP.SYRIN IV ONE; -HEPARIN SODIUM 5000 UNIT/1 ML ONE
[2018-05-01] MEDS ORDERED: IRON SUCROSE COMPLEX 200 MG in 0.9 % SODIUM CHLORIDE 250 ML IV SCH (10:00)
== END 2018-05-01 09:03 ==
LOC: INF 09:01
PROVIDERS: ATTEND Family Medicine
DX: D50.9 Iron deficiency anemia, unspecified (principal)
CPT/HCPCS: J1642; J1756; J7050; 96365

== ENCOUNTER 2018-06-06 08:55 | Outpatient (CLI) | payer MEDICARE ==
[2015-12-22 02:25] VITALS: BP 124/72
[2018-06-06] MEDS ORDERED: HEPARIN SODIUM 500 UNIT/5 ML DISP.SYRIN IV ONE (09:00)
[2018-06-06] MEDS ORDERED: IRON SUCROSE COMPLEX 20 MG/ML 10ML VIAL IV ONE (09:00)
[2018-06-06] MEDS ORDERED: SALINE FLUSH 10 ML DISP.SYRIN IVF ONE (09:00)
[2018-06-06] MEDS ORDERED: 0.9 % SODIUM CHLORIDE 100 ML IV.SOLN IV ONE (09:00)
[2018-06-06] MEDS ORDERED: IRON SUCROSE COMPLEX 200 MG in 0.9 % SODIUM CHLORIDE 100 ML IV ONE (10:00)
== END 2018-06-06 08:56 ==
LOC: INF 08:55
PROVIDERS: ATTEND Family Medicine
DX: D50.9 Iron deficiency anemia, unspecified (principal)
CPT/HCPCS: J1642; J1756; 96365

== ENCOUNTER 2018-07-06 09:06 | Outpatient (CLI) | payer MEDICARE ==
[2015-12-22 02:25] VITALS: BP 124/72
[2018-07-06] MEDS ORDERED: IRON SUCROSE COMPLEX 200 MG in 0.9 % SODIUM CHLORIDE 100 ML IV ONE (10:00)
[2018-07-06] MEDS ORDERED: 0.9 % SODIUM CHLORIDE 250 ML IV.SOLN IV ONE (12:00)
[2018-07-06] MEDS ORDERED: SALINE FLUSH 10 ML DISP.SYRIN IVF ONE (12:00)
[2018-07-06] MEDS ORDERED: IRON SUCROSE COMPLEX 20 MG/ML 10ML VIAL IV ONE (12:00)
[2018-07-06] MEDS ORDERED: HEPARIN SODIUM 500 UNIT/5 ML DISP.SYRIN IV ONE (12:00)
== END 2018-07-06 09:07 ==
LOC: INF 09:06
PROVIDERS: ATTEND Family Medicine
DX: D50.9 Iron deficiency anemia, unspecified (principal)
CPT/HCPCS: J1642; J1756; J7050; 96365

== ENCOUNTER 2018-08-09 10:03 | Outpatient (CLI) | payer MEDICARE ==
[2015-12-22 02:25] VITALS: BP 124/72
[2018-08-09] MEDS ORDERED: IRON SUCROSE COMPLEX 200 MG in 0.9 % SODIUM CHLORIDE 100 ML IV ONE (11:00)
[2018-08-09] MEDS ORDERED: HEPARIN SODIUM 500 UNIT/5 ML DISP.SYRIN IV ONE (11:39)
[2018-08-09] MEDS ORDERED: IRON SUCROSE COMPLEX 20 MG/ML 10ML VIAL IV ONE (13:00)
[2018-08-09] MEDS ORDERED: SALINE FLUSH 10 ML DISP.SYRIN IVF ONE (13:00)
[2018-08-09] MEDS ORDERED: 0.9 % SODIUM CHLORIDE 250 ML IV.SOLN IV ONE (13:00)
[2018-08-10] MEDS ORDERED: SALINE FLUSH 10 ML DISP.SYRIN IVF ONE (11:00)
[2018-08-10] MEDS ORDERED: HEPARIN SODIUM 500 UNIT/5 ML DISP.SYRIN IV ONE (11:00)
== END 2018-08-09 10:04 ==
LOC: INF 10:03
PROVIDERS: ATTEND Family Medicine
DX: D50.9 Iron deficiency anemia, unspecified (principal)
CPT/HCPCS: 96365; J1642; J1756; J7050

== ENCOUNTER 2018-08-29 10:39 | Outpatient (CLI) | payer MEDICARE ==
[2015-12-22 02:25] VITALS: BP 124/72
--- NOTE | 2018-08-29 20:05 | Diagnostic Imaging Report ---
LM RUSSO [facility] [id number] [facility] [address] [id number] Report Submission Date: Aug 29, 2018 11:32:48 AM [employer] ATTENDANT Patient Study Name: VILMA CHANDRA Date: Aug 29, 2018 11:02:35 AM [employer] ATTENDANT Modality Type: CT\SR Gender: F Description: CT BRAIN W/O CONTRAST : 33 Institution: [facility] Physician: LM RUSSO CT brain without IV contrast Clinical history: Tremors and headaches for several months Radiation dose DLP 770 Mild cortical atrophy without bleeding or acute intracranial abnormalities. No evidence of intracranial bleed, acute infarct, midline shift or hydrocephalus. Mucosal thickening of the sphenoid sinus on the left. Mastoid air cells are clear. Impression: Chronic sinusitis of left sphenoid. Mild atrophy without bleeding or acute intracranial abnormalities Electronically signed on Aug 29, 2018 11:32:48 AM [employer] ATTENDANT by: Andrew MAC
== END 2018-08-29 10:40 ==
LOC: RAD 10:39
PROVIDERS: ATTEND Family Medicine
DX: R25.1 Tremor, unspecified (principal); J32.9 Chronic sinusitis, unspecified; G31.9 Degenerative disease of nervous system, unspecified
CPT/HCPCS: 70450

== ENCOUNTER 2018-12-31 11:06 | Outpatient (CLI) | payer MEDICARE ==
[2015-12-22 02:25] VITALS: BP 124/72
[2018-12-31 11:45] LABS: EOSINOPHILS % 3.3 % (0.0-6.8); MEAN CORPUSCULAR HEMOGLOBIN 31.2 pg (28.0-34.0); MONOCYTES % 5.4 % (0.0-11.0)
[2018-12-31 11:46] LABS: BASOPHILS % 0.5 (0.0-1.5); NEUTROPHILS # 3.9 # k/uL (1.4-7.7)
== END 2018-12-31 11:08 ==
LOC: LAB 11:06
PROVIDERS: ATTEND Family Medicine
DX: D64.9 Anemia, unspecified (principal); D50.9 Iron deficiency anemia, unspecified
CPT/HCPCS: 36415; 82728; 83540; 83550; 85025

== ENCOUNTER 2019-02-27 13:57 | Outpatient (CLI) | payer MEDICARE ==
[2015-12-22 02:25] VITALS: BP 124/72
[2019-02-27 14:26] LABS: eGFR (Non-African) > 60
== END 2019-02-27 14:00 ==
LOC: LAB 13:57
PROVIDERS: ATTEND Family Medicine
DX: R60.9 Edema, unspecified (principal)
CPT/HCPCS: 36415; 80053; 83880

== ENCOUNTER 2019-04-23 07:32 | Outpatient (CLI) | payer MEDICARE ==
[2015-12-22 02:25] VITALS: BP 124/72
[2019-04-23 08:14] LABS: eGFR (Non-African) > 60
[2019-04-23 11:29] LABS: BASOPHILS % 0.3 % (0.0-1.5); NEUTROPHILS # 5.2 # k/uL (1.4-7.7)
== END 2019-04-23 07:34 ==
LOC: LAB 07:32
PROVIDERS: ATTEND Family Medicine
DX: I10 Essential (primary) hypertension (principal); K21.9 Gastro-esophageal reflux disease without esophagitis; D50.9 Iron deficiency anemia, unspecified
CPT/HCPCS: 80053; 82728; 83540; 83550; 85025

== ENCOUNTER 2019-06-13 10:35 | Outpatient (CLI) | payer MEDICARE ==
[2015-12-22 02:25] VITALS: BP 124/72
[2019-06-13 10:37] LABS: BASOPHILS % 0.3 % (0.0-1.5); NEUTROPHILS # 3.5 # k/uL (1.4-7.7)
== END 2019-06-13 10:37 ==
LOC: LAB 10:35
PROVIDERS: ATTEND Family Medicine
DX: I10 Essential (primary) hypertension (principal); K21.9 Gastro-esophageal reflux disease without esophagitis; E56.9 Vitamin deficiency, unspecified; D50.9 Iron deficiency anemia, unspecified
CPT/HCPCS: 36415; 83540; 83550; 85025; P9603

== ENCOUNTER 2019-07-09 10:20 | Outpatient (CLI) | payer MEDICARE ==
[2015-12-22 02:25] VITALS: BP 124/72
[2019-07-09 10:25] LABS: BASOPHILS % 0.4 % (0.0-1.5); NEUTROPHILS # 3.1 # k/uL (1.4-7.7)
[2019-07-09 10:43] LABS: eGFR (Non-African) > 60
== END 2019-07-09 10:30 ==
LOC: LAB 10:20
PROVIDERS: ATTEND Family Medicine
DX: D50.9 Iron deficiency anemia, unspecified (principal); E03.9 Hypothyroidism, unspecified; R53.83 Other fatigue
CPT/HCPCS: 36415; 80053; 83540; 83550; 84439; 84443; 84481; 85025

== ENCOUNTER 2019-07-25 09:32 | Outpatient (CLI) | payer MEDICARE ==
[2015-12-22 02:25] VITALS: BP 124/72
[2019-07-25 10:34] LABS: BASOPHILS % 0.4 % (0.0-1.5); NEUTROPHILS # 3.4 # k/uL (1.4-7.7); eGFR (Non-African) > 60
== END 2019-07-25 09:37 ==
LOC: LAB 09:32
PROVIDERS: ATTEND Family Medicine
DX: I10 Essential (primary) hypertension (principal); K21.9 Gastro-esophageal reflux disease without esophagitis
CPT/HCPCS: 36415; 80053; 83540; 83550; 85025; P9603

== ENCOUNTER 2019-07-30 14:57 | Outpatient (CLI) | payer MEDICARE ==
[2015-12-22 02:25] VITALS: BP 124/72
[2019-07-30 15:00] LABS: eGFR (Non-African) > 60
== END 2019-07-30 15:02 ==
LOC: LAB 14:57
PROVIDERS: ATTEND Family Medicine
DX: K21.9 Gastro-esophageal reflux disease without esophagitis (principal); I10 Essential (primary) hypertension; R60.0 Localized edema
CPT/HCPCS: 36415; 80048; P9603

== ENCOUNTER 2019-09-12 07:15 | Outpatient (CLI) | payer MEDICARE ==
[2015-12-22 02:25] VITALS: BP 124/72
[2019-09-12 08:23] LABS: eGFR (Non-African) > 60
[2019-09-12 11:50] LABS: BASOPHILS % 0.5 % (0.0-1.5); NEUTROPHILS # 3.5 # k/uL (1.4-7.7)
== END 2019-09-12 07:20 ==
LOC: LAB 07:15
PROVIDERS: ATTEND Family Medicine
DX: I10 Essential (primary) hypertension (principal); D50.9 Iron deficiency anemia, unspecified
CPT/HCPCS: 36415; 80053; 83540; 83550; 85025; P9603

== ENCOUNTER 2019-09-25 19:44 | Outpatient (CLI) | payer MEDICARE ==
[2015-12-22 02:25] VITALS: BP 124/72
== END 2019-09-25 19:49 ==
LOC: LAB 19:44
PROVIDERS: ATTEND Family Medicine
DX: K21.9 Gastro-esophageal reflux disease without esophagitis (principal)
CPT/HCPCS: 87070; 87880